=== PATIENT | male | born 1990 | race Caucasian/White ===

== ENCOUNTER 2022-04-12 08:37 | Emergency (ER) | payer MEDICAID, OTHER ==
[~2022-04-12] VITALS: Ht 177.8 cm; Wt 118.0 kg
[2022-04-12 08:59] VITALS: BP 151/86
[2022-04-12] MEDS ORDERED: FLUORESCEIN SODIUM 1MG/STRIP RIGHTEYE ONE (11:15)
[2022-04-12] MEDS ORDERED: TETRACAINE 0.5% OPHTH DROPS 4ML RIGHTEYE ONE (11:15)
[2022-04-12] MEDS ORDERED: IBUP-2030 MT (11:28)
[2022-04-12] MEDS ORDERED: BACI3.5O5 RIGHTEYE (11:28)
== END 2022-04-12 11:57 | disposition home or self-care (01) ==
LOC: ER 08:37
DX: S00.211A Abrasion of right eyelid and periocular area, initial encounter (principal); V89.9XXA Person injured in unspecified vehicle accident, initial encounter; Y93.89 Activity, other specified; Y92.89 Other specified places as the place of occurrence of the external cause; Y99.8 Other external cause status
CPT/HCPCS: 99283